=== PATIENT | female | born 1945 | race Caucasian/White ===

== ENCOUNTER 2017-01-15 14:16 | Emergency (ER) | payer OTHER, MEDICAID ==
[~2017-01-15] VITALS: Ht 162.6 cm; Wt 59.0 kg
[2017-01-15 14:24] VITALS: BP_SYST 106
--- NOTE | 2017-01-15 14:56 | NUR ---
Placed in room 08 . Placed on [employer], blood pressure machine and pulse oximeter. To gown for exam. Side rails up.
--- NOTE | 2017-01-15 14:57 | NUR ---
Pt brought by sister, A&Ox4, pt c/o LAC on L ring finger after cutting it with a knife, skin pink and warm, cap refill <3, VS WNL, skin pink and warm,cap refill<3,pt is afebrile.
--- NOTE | 2017-01-15 15:12 | NUR ---
FAIZA Dotson at bedside examining patient.
[2017-01-15] MEDS ORDERED: BACITRACIN 1 GM OINT TP ONE (15:15)
[2017-01-15] MEDS ORDERED: LIDOCAINE 2%, 20 ML MDV IJ ONE (15:15)
[2017-01-15] MEDS ORDERED: HYDROcodone/ACETAMIN 5-325 MG TAB (NORCO/ VICODIN) PO ONE (15:15)
[2017-01-15] MEDS ORDERED: ACETAMINOPHEN 500 MG TABLET ONE (15:23)
--- NOTE | 2017-01-15 15:31 | NUR ---
Note carlosenrique in EDM - 01/15/17 at 1617 by [email or web address] Patient has a 2 cm laceration to Left 4th finger. MICHAEL Dotson applied sutures using sterile technique. Edges well approximated. Site cleansed with Betadine and normal saline. Dressing of non adherent dressing applied to site. No bleeding noted. Pt tolerated well.
--- NOTE | 2017-01-15 15:31 | NUR ---
Patient has a 1 cm laceration to Left 4th finger. MIHCAEL Dotson applied sutures using sterile technique. Edges well approximated. Site cleansed with Betadine and normal saline. Dressing of non adherent dressing applied to site. No bleeding noted. Pt tolerated well.
[2017-01-15] MEDS: ACETAMINOPHEN 500 MG TABLET PO ONE ×2 (16:17→16:21)
[2017-01-15 16:30] VITALS: BP_SYST 108
--- NOTE | 2017-01-15 16:30 | NUR ---
Patient given written and verbal discharge instructions and verbalizes understanding. ER MD discussed with patient the results and treatment provided. Patient in stable condition. ID arm band removed. Rx of Tylenol and Bacitracin given. Patient educated on pain management and to follow up with PMD. Pain Scale 1/10 tolerable for pt . Opportunity for questions provided and answered.
== END 2017-01-15 16:30 | disposition home or self-care (01) ==
LOC: SED 14:16
DX: S61.215A Laceration without foreign body of left ring finger without damage to nail, initial encounter (principal); E11.9 Type 2 diabetes mellitus without complications; R03.0 Elevated blood-pressure reading, without diagnosis of hypertension; Z88.0 Allergy status to penicillin; W26.0XXA Contact with knife, initial encounter; Y93.89 Activity, other specified; Y92.090 Kitchen in other non-institutional residence as the place of occurrence of the external cause; Y99.8 Other external cause status
CPT/HCPCS: 12001; 99283; J2001